=== PATIENT | male | born 1960 | race Caucasian/White ===

== ENCOUNTER 2024-03-16 13:47 | Emergency (ER) | payer OTHER ==
--- OUTSIDE RECORDS SUMMARY | 2024-03-16 13:52 | XMS REPORT | Continuity of Care Document ---
Author Name Unknown Address [address] [facility] [address] [place] [address] [facility] thconnect Address [address] [facility] [address] [place] [address] Care Team Providers Care Job Coaching Name Role Phone Conchita Attending Clinician Unavailable Mg Mitchell Attending Clinician Unavail able Stef Garcia Attending Clinician Unavailable Guerita Attending Clinician Unavailable Conchita Admitting Clinician Unavailable Guerita Admitting Clinician Unavailable Payers Payer Name Policy Type Policy Number Effective Date Expirati on Date Source [facility] [id number] 2023 00:00:00 2023 00:00:00 [place] [id number] 2012 00:00:00 Social History Social Habit Start Date Stop Date Quantity Comments Source Sex Assigned At 1960 00:00:00 1960 00:00:[address] [facility] Smoking Status Start Date Stop Date Source Unknown if ever smoked [facility] Procedures Procedure Date / Time Performed Performing Clinicia n Source CT Cervical Spine WO Con 2021-06-23 08:20:[address] [facility] Encounters Start Date/Time End Date/Time Encounter Type Admission Type Attending Clinicians Care Facility Care Department Encounter ID Source 2023-03-12 00:00:00 2023-03-12 00:00:00 Outpatient [place] [id number] [facility] 2021-08-09 15:06:00 2021-08-09 20:24:00 Emergency ER Mg Mitchell [facility] [id number] [facility] 2021-06-23 07:56:00 2021-06-23 09:00:00 Departed Emergency [id number] [facility] Ctr-EMERGEN CY SERVICES [id number] [facility]) 2021-06-23 07:56:00 2021-06-23 09:00:00 Emergency ER Stef Garcia [facility] [id number] [facility] 2021-06-23 07:56:00 2021-06-23 09:00:[address] [facility] Ctr-EMERG ENCY SERVICES [facility]tr-EMERGEN CY SERVICES [id number] [facility] ([place] 2016-08-02 04:37:00 2016-08-02 04:37:00 Outpatient Sreedhar_R [id number] [facility] Results Test Description Test Time Test Comments Results Result Co mments Source CPT Modifier: 59Hematology - [id number] 13:24:00* Test Item Value Reference Range Interpretation Comme nts Hematology - Fluids (test code = CRYSID) No crystals identified by polarization of unstained cytospinslide.SUSIE PERERA MD Source: KNEE ASPIRATEHematology - [id number] 11:23:00* Test Item Value Reference Range Interpretation Comme nts Hematology - Fluids (test code = CCDIFFBF) Synovial Fluid Hematology - Fluids (test code = CCDIFFTUBE) EDTA Hematology - Fluids (test code = CCDIFFCL) Cloudy/Turbid Clear A Hematology - Fluids (test code = CCDIFFBFCOL) Red Hematology - Fluids (test code = CCDIFFWBCA) 5745 /cu.mm Hematology - Fluids (test code = CCDIFFRBCA) Greater than 414530 /cu.mm Hematology - Fluids (test code = CCDIFFREFR) Note: The reference ra nge has not been established for this bodyfluid. The test result must be integrated into the clinicalcontext for interpretation. Source: SYNOVIAL FLUIDHematology - [id number] 11:23:00* Test Item Value Reference Range Interpretation Comme nts Hematology - Fluids (test code = CCDIFFBFNE) 37 % Hematology - Fluids (test code = CCDIFFLY) 9 % Hematology - Fluids (test code = CCDIFFNON) 54 % Non-Mack tic cells consist of macrophages, endothelial,histiocytic and mesothelial cells. Source: SYNOVIAL FLUIDHematology - [id number] 11:23:00* Test Item Value Reference Range Interpretation Comme [facility] Hematology - Fluids (test code = PATHF) Clinical: 60 year old male, unknown clinical.Fluid: Synovial fluidIMpression: Other cells are macrophages and synovial cells(on Ayala stained cytospin). No malignant cellsidentified.No crystals identified by polarization of unstained cytospinslide.SUSIE PERERA,[facility] CODE: [id number], 96254 Source: SYNOVIAL FLUIDSepsis - Lactic Acid >2 [id number] 20:01:00* Test Item Value Reference Range Interpretation Comme [facility] Sepsis - Lactic Acid >2 Rflx (test code = RTCWQ7A) Additional Lactate testing will be performed in 2 hrs according to the SepsisProtocol. Chemistry - Body [id number] 18:51:00* Test Item Value Reference Range Interpretation Comme [facility] Chemistry - Body Fluids (marimar t code = SYNGLU) 76 mg/dL Not Available [id number] 18:04:00* Test Item Value Reference Range Interpretation Comme [facility] Chemistry (test code = NA-T) 140 mmol/L 136-145 N Chemistry (test code = K-T) 4.5 mmol/L 3.5-5.1 N Chemistry (test code = CL) 104 mmol/L 98-107 N Chemistry (test code = CO2) 28 mmol/L 23-31 N Chemistry (test code = ANGP) 13 mmol/L 10-20 N Chemistry (test code = BUN) 17 mg/dL 8.4-25.7 N Chemistry (test code = CREATT) 0.89 mg/dL 0.7-1.3 N Chemistry (test code = EGFRMDRD) 87 Reference Range for Estimated GFR: Greater than 90 mL/min/1.73 m2NOTE:The MDRD equation has not been validated for use with theelderly (over 70 years of age), women, patientswith serious comorbid condition or persons with extremes ofbody size, muscle mass, or nutritional status. Chemistry (test code = GLU-T) 97 mg/dL 80-115 N Chemistry (test code = CA) 9.4 mg/dL 7.8-10.44 N Chemistry (test code = TBILI-T) 0.5 mg/dL 0.2-1.2 N Chemistry (test code = TP) 7.1 g/dL 5.8-8.1 N Chemistry (test code = ALB) 4.3 g/dL 3.4-4.8 N Chemistry (test code = GLOB) 2.8 g/dL 2.4-3.5 N Chemistry (test code = AG) 1.5 g/dL 1.2-2.2 N Chemistry (test code = ALP) 59 U/L 40-110 N Chemistry (test code = AST) 19 U/L 5-34 N Chemistry (test code = ALT) 17 U/L 8-55 N [id number] 18:02:00* Test Item Value Reference Range Interpretation Comme [facility] Chemistry (test code = CRP) 1.98 mg/dL See_Comment H [Automated [employer] ge] The system which generated this result transmitted reference range: = or < 0.5. The reference range was not used to interpret this result as normal/abnormal. What test does the doctor want? C-REACTIVE PROTEIN (CRP)Chemistry - Lactate 2021-08-09 18:00:00* Test Item Value Reference Range Interpretation Comme [facility] Chemistry - Lactate (test co de = LACTSEP-T) 2.4 mmol/L 0.5-2.2 H [id number] 17:50:00* Test Item Value Reference Range Interpretation Comme [facility] Hematology (test code = SED) 7 mm/hr Less than 20 [id number] 17:43:00* Test Item Value Reference Range Interpretation Comme [facility] Hematology (test code = WBCT) 10.9 thou/uL 4.8-10.8 H Hematology (test code = RBCT) 5.02 mill/uL 4.70-6.10 N Hematology (test code = HGBT) 15.0 g/dL 14.0-18.0 N Hematology (test code = HCTT) 44.5 % 42.0-52.0 N Hematology (test code = MCV) 88.6 fL 78.0-98.0 N Hematology (test code = MCH) 29.8 pg 27.0-31.0 N Hematology (test code = MCHC) 33.7 g/dL 32.0-36.0 N Hematology (test code = RDW) 12.2 % 11.5-14.5 N Hematology (test code = PLTT) 280 thou/uL 130-400 N Hematology (test code = MPV) 7.3 fL 7.4-10.4 L Hematology (test code = %NEUT) 65.6 % 42.0-75.0 N Hematology (test code = %LYMPH) 21.7 % 21.0-51.0 N Hematology (test code = %MONO) 9.7 % 0.0-10.0 N Hematology (test code = %EOS) 2.5 % 0.0-10.0 N Hematology (test code = %BASO) 0.5 % 0.0-1.0 N Hematology (test code = NEUT#) 7.1 thou/uL 1.40-6.50 H Hematology (test code = LYMPH#) 2.4 thou/uL 1.20-3.40 N Hematology (test code = MONO#) 1.1 thou/uL 0.11-0.59 H Hematology (test code = EOS#) 0.3 thou/uL 0.0-0.7 N Hematology (test code = BASO#) 0.1 thou/uL 0.0-0.[address] [facility] 1960 [facility] ERNST HILLIARD [address] Phys: [place] [address] : 1960 Age: 60 SEX:M [phone] Exam Date: 06/23/21 Status: REG ER Acct: [id number] Loc: ERS Pt Unit #: [id number] Report #: [id number] CC: ED TEMP PROVIDER Dayday Alford MD CAT SCAN REPORT Order # Category/Exam [id number] CT/CT Cervical Spine WO Con ([id number]): . Results EXAM: CT scan cervical spineWithout contrast: HISTORY: Neck pain COMPARISON: None FINDINGS: No evidence for acute fracture or facet dislocation. No significant malalignment. No prevertebral soft tissue swelling. Anterior cervical fusion changes at C4, C5, C6, and C7 with metal plate andscrews at C5, C6, C7. IMPRESSION: No evidence for acute fracture or facet dislocation or other significant acute process. Reported By: Harry Anderson MD Electronically Signed Date/Time: 06/23/21844 Technologist: DENI Dictated Date/Time: 06/23/21839 Transcribed Date/Time:
[2024-03-16] MEDS ORDERED: FENTANYL CITR 100 MCG/2 ML ONE (14:56)
[2024-03-16] MEDS ORDERED: ONDANSETRON 4 MG/2 ML VIAL ONE (14:56)
[2024-03-16] MEDS ORDERED: NA CHLORIDE 0.9% 1,000 ML ONE (14:57)
--- NOTE | 2024-03-16 15:11 | RAD REPORT ---
EXAM DESCRIPTION: RAD - Knee Right 3 View - 03/16/2024 3:05 pm CLINICAL HISTORY: PAIN COMPARISON: <Comparisons> FINDINGS: Soft tissue about the knee is edematous and thickened. There is a moderate joint effusion suspected. Right total knee arthroplasty noted.
[2024-03-16 15:43] LABS: Absolute Basophils 0.1 K/uL (0-0.5); Absolute Eosinophils 0.1 K/uL (0-0.5); Absolute Lymphocytes (CBC) 1.9 K/uL (0.7-4.9); Absolute Monocytes 1.2 K/uL (0.1-1.3); Basophils % 0.8 % (0-1.3); Eosinophils % 1.1 % (0-4.4); Hematocrit 38.8 % (39.6-49.0); Hemoglobin 12.8 g/dL (13.6-17.9); Lymphocytes % 16.7 % (15.3-44.8); MCH 28.6 pg (27.0-35.0); MCHC 33.1 g/dL (32.0-36.0); MCV 86.3 fL (80-100); Monocytes % 10.3 % (3.3-12.3); Neutrophils % 71.1 % (41.7-73.7); Platelets 565 thou/uL (152-406); RBC Red Blood Cell Count 4.49 M/uL (4.33-5.43); Red Cell Distribution Width 13.3 % (12.1-15.2)
[2024-03-16 15:59] LABS: PTT, Activated Partial Thromb 33.6 SECONDS (24.3-36.9); Protime INR 1.17
[2024-03-16 16:08] LABS: Albumin/Globulin Ratio 0.7 (1.1-1.8); Anion Gap 8.1 mEq/L (5.0-15.0); Bilirubin Total 0.3 mg/dL (0.2-1.0); Globulin 4.3 g/dL (2.3-3.5); Potassium 4.1 mEq/L (3.5-5.1); Protein, Total 7.3 g/dL (6.4-8.2)
[2024-03-16] MEDS ORDERED: MORPHINE 4 MG/ML SYR ONE ×2 (16:13→19:13)
--- NOTE | 2024-03-16 16:19 | ER ---
Nurse's Notes [facility] Name: Delon Bob Age: 63 yrs Sex: Male : 1960 Arrival Date: 03/16/2024 Time: 13:47 Bed 4 Private MD: Diagnosis: Post-op infection right knee Presentation: 03/16 14:01 Chief complaint: Patient states: had right knee surgery on Mar 05 at [facility], was sent home iw with baby aspirin only , was sent to a halfway [place] and he left after an hour, the knee is hot and painful and seems infected. Coronavirus screen: At this time, the client does not indicate any symptoms associated with coronavirus-19. Ebola Screen: No symptoms or risks identified at this time. Initial Sepsis Screen: Does the patient meet any 2 criteria? HR > 90 bpm. Does the patient have a suspected source of infection? No. Patient's initial sepsis screen is negative. Risk Assessment: Do you want to hurt yourself or someone else? Patient reports no desire to harm self or others. Onset of symptoms was March 16, 2024. 14:01 Method Of Arrival: Ambulatory iw 14:01 Acuity: MANUEL 3 iw Historical: - Allergies: 15:36 No Known Allergies; mb9 - Home Meds: 15:36 None [Active]; mb9 - PMHx: 15:36 None; mb9 - Immunization history:: Adult Immunizations up to date. - Infectious Disease History:: Denies. - Social history:: Smoking status: Patient denies any tobacco usage or history of. Screenin:37 [facility] ED Fall Risk Assessment (Adult) History of falling in the last 3 months, mb9 including since admission No falls in past 3 months (0 pts) Confusion or Disorientation No (0 pts) Intoxicated or Sedated No (0 pts) Impaired Gait Yes (1 pt) Mobility Assist Device Used Yes (1 pt) Altered Elimination No (0 pt) Score/Fall Risk Level 3 or more points = High Risk Oriented to surroundings, Maintained a safe environment, Educated pt \T\ family on fall prevention, incl call for assistance when getting out of bed, Assessed \T\ reinforced patient's understanding of fall precautions. Abuse screen: Denies threats or abuse. Nutritional screening: No deficits noted. Tuberculosis screening: No symptoms or risk factors identified. Assessment: 15:30 General: Appears in no apparent distress. Behavior is calm, cooperative. Pain: mb9 Complains of pain in right leg. Neuro: Warren Agitation-Sedation Scale (RASS): 0 - Alert and Calm Level of Consciousness is awake, alert, obeys commands, Oriented to person, place, time, situation, Appropriate for age. Cardiovascular: Patient's skin is warm and dry. Respiratory: Airway is patent Respiratory effort is even, unlabored, Respiratory pattern is regular, symmetrical. GI: No signs and/or symptoms were reported involving the gastrointestinal system. : No signs and/or symptoms were reported regarding the genitourinary system. EENT: No signs and/or symptoms were reported regarding the EENT system. Derm: Skin is pink, warm \T\ dry. Musculoskeletal: Range of motion: intact in all extremities, Swelling present in right leg. 17:00 Reassessment: No changes from previously documented assessment. Patient and/or family mb9 updated on plan of care and expected duration. Pain level reassessed. Patient is alert, oriented x 3, equal unlabored respirations, skin warm/dry/pink. 18:21 Reassessment: No changes from previously documented assessment. Patient and/or family mb9 updated on plan of care and expected duration. Pain level reassessed. Patient is alert, oriented x 3, equal unlabored respirations, skin warm/dry/pink. Vital Signs: 14:01 BP 128 / 76; Pulse 110; Resp 18; Temp 97; Pulse Ox 99% on R/A; iw 16:14 BP 147 / 94; Pulse 88; Resp 18; Pulse Ox 100% on R/A; mb9 18:20 BP 121 / 90; Pulse 85; Resp 18; Pulse Ox 100% on R/A; mb9 ED Course: 13:55 Patient arrived in ED. im 14:04 Triage completed. iw 14:04 Ingr[facility] Dooley [facility]-C [facility]. kb 14:04 Jakob Quiroz MD is Attending Physician. kb 14:54 Geneva Kaminski RN is Primary Nurse. mb9 15:07 Knee Right 3 View XRAY In Process Unspecified. EDMS 15:10 EKG done, by ED staff, reviewed by Ingris PENN. mb9 15:36 Arm band placed on. mb9 15:36 Placed in gown. Bed in low position. Call light in reach. Side rails up X 1. Provided mb9 Education on: press call light if needing anything. Client placed on continuous cardiac and pulse oximetry monitoring. NIBP monitoring applied. front desk monitor on. 15:36 Initial lab(s) drawn, by me, sent to lab. Inserted saline lock: 20 gauge in left mb9 forearm, using aseptic technique. Blood collected. Flushed with 10 mL NS. 16:01 No provider procedures requiring assistance completed. mb9 16:28 Patient transferred, IV remains in place. mb9 16:28 Wound care: to [facility]. bp 17:15 spoke with Tita at the [place] transfer center. and faxed over all clinical's. bc6 17:50 received acceptance with at the [facility] through Tita. bc6 18:30 janneth with [place] given ETA of 45 minutes. bc6 Administered Medications: 15:28 Drug: Ondansetron IVP 4 mg IVP once; over 2 minutes Route: IVP; Site: left forearm; mb9 18:22 Follow up: Response: No adverse reaction mb9 15:28 Drug: NS 0.9% IV 1000 ml IV at 1000 ml once Route: IV; Rate: 1000 ml; Site: left mb9 forearm; 18:22 Follow up: Response: No adverse reaction; IV Status: Completed infusion mb9 15:30 Drug: fentaNYL (PF) IVP 25 mcg IVP once Route: IVP; Site: left forearm; mb9 18:22 Follow up: Response: No adverse reaction mb9 16:26 Drug: morphine IVP or IV 4 mg IVP once over 4 mins Route: IVP; Infused Over: 4 mins; mb9 Site: left antecubital; 18:22 Follow up: Response: No adverse reaction mb9 18:02 Drug: vancoMYCIN IVPB 1 grams IVPB once over 2 hrs Route: IVPB; Infused Over: 2 hrs; bp Site: left wrist; 18:43 Follow up: Response: No adverse reaction; IV Status: Infusion continued upon transfer mb9 19:20 Drug: morphine IVP or IV 4 mg IVP once over 4 mins Route: IVP; Infused Over: 4 mins; jb4 Site: left forearm; 19:29 Follow up: Response: Medication Administered at Departure jb4 Medication: 15:37 VIS not applicable for this client. mb9 Outcome: 16:19 ER care complete, transfer ordered by MD. rice 18:21 Transferred by ground EMS to [facility] Transfer form completed. mb9 X-rays sent w/ patient. 18:21 Condition: stable 18:21 Instructed on the need for transfer, 19:30 Patient left the ED. jb4 Signatures: Dispatcher [employer] EDLA Ingris Dooley, TRANSITION MANAGER-C TRANSITION MANAGER-Kristy Bass, RN RN Delon López RN RN jb4 George Daugherty RN RN bp Wilkerson, Mary Beth, RN RN mb9 Crystal Beal6 Marimar Stevens
--- NOTE | 2024-03-16 16:19 | EDPHYS ---
Physician Documentation [facility] Name: Delon Bob Age: 63 yrs Sex: Male : 1960 Arrival Date: 03/16/2024 Time: 13:47 Bed 4 Private MD: ED Physician Jakob uQiroz HPI: 03/16 16:10 This 63 yrs old Male presents to ER via Ambulatory with complaints of Knee Pain - post kb surgery issue on 03/05/24. 16:10 Pt is a 63 year old male who presents for redness, swelling, warmth and increased pain kb to right knee. States he had a knee replacement on 03/05/24 at the [place] and believes it is infected. Reports intermittent nausea and fever. . Historical: - Allergies: 15:36 No Known Allergies; mb9 - Home Meds: 15:36 None [Active]; mb9 - PMHx: 15:36 None; mb9 - Immunization history:: Adult Immunizations up to date. - Infectious Disease History:: Denies. - Social history:: Smoking status: Patient denies any tobacco usage or history of. ROS: 15:23 Constitutional: As per HPI kb Exam: 15:23 Constitutional: This is a well developed, well nourished patient who is awake, alert, kb and in no acute distress. Head/Face: Normocephalic, atraumatic. ENT: Moist Mucous membranes Cardiovascular: Regular rate Respiratory: Respirations even and unlabored. No increased work of breathing. Talking in full sentences Abdomen/GI: Soft, non-tender. No distention Neuro: Awake and alert, GCS 15, oriented to person, place, time, and situation. Moves all extremities. Normal gait. 15:23 ECG was reviewed by the Attending Physician. 16:09 Musculoskeletal/extremity: Extremities: grossly normal except: noted in the right knee: kb ecchymosis, pain, swelling, tenderness, surgical incision well approximated, ROM: limited active range of motion due to pain, Circulation is intact in all extremities. Sensation intact. Weight bearing: can bear weight with assistance only, uses walker, Vital Signs: 14:01 BP 128 / 76; Pulse 110; Resp 18; Temp 97; Pulse Ox 99% on R/A; iw 16:14 BP 147 / 94; Pulse 88; Resp 18; Pulse Ox 100% on R/A; mb9 18:20 BP 121 / 90; Pulse 85; Resp 18; Pulse Ox 100% on R/A; mb9 MDM: 14:04 Patient medically screened. kb 16:10 Data reviewed: vital signs, nurses notes. kb 16:15 Differential diagnosis: cellulitis, post op infection. Consideration of kb Admission/Observation Escalation of care including admission/observation considered. pt will be transferred to [place] for continuity of care. Counseling: I had a detailed discussion with the patient and/or guardian regarding the historical points, exam findings, and any diagnostic results supporting the discharge/admit diagnosis, lab results, radiology results, the need to transfer to another facility, continuity of care. 18:06 Management of patient was discussed with the following: Dr Araiza accepts pt without kb conference. 03/16 14:04 Order name: Blood Culture Adult (2) kb 03/16 14:04 Order name: CBC with Diff; Complete Time: 15:45 kb 03/16 14:04 Order name: CMP; Complete Time: 16:08 kb 03/16 14:04 Order name: Lactate w/ 2H reflex if indic.; Complete Time: 16:08 kb 03/16 14:04 Order name: Protime (+inr); Complete Time: 15:59 kb 03/16 14:04 Order name: Ptt, Activated; Complete Time: 15:59 kb 03/16 14:09 Order name: Knee Right 3 View XRAY; Complete Time: 15:12 iw 03/16 14:04 Order name: EKG; Complete Time: 14:05 kb 03/16 14:04 Order name: Accucheck; Complete Time: 15:37 kb 03/16 14:04 Order name: Cardiac monitoring; Complete Time: 15:37 kb 03/16 14:04 Order name: EKG - Nurse/Tech; Complete Time: 15:37 kb 03/16 14:04 Order name: IV Saline Lock - Large Bore; Complete Time: 15:37 kb 03/16 14:04 Order name: Labs collected and sent; Complete Time: 15:37 kb 03/16 14:04 Order name: O2 Per Protocol; Complete Time: 15:37 kb 03/16 14:04 Order name: O2 Sat Monitoring; Complete Time: 15:37 kb 03/16 14:04 Order name: Vital Signs; Complete Time: 15:37 kb 03/16 16:06 Order name: Dressing - Wound; Complete Time: 16:19 kb EC:23 Rate is 90 beats/min. Rhythm is regular. QRS [place] is Normal. DE interval is normal at kb 144 msec. QRS interval is normal at 88 msec. QT interval is normal at 452 msec. Administered Medications: 15:28 Drug: Ondansetron IVP 4 mg IVP once; over 2 minutes Route: IVP; Site: left forearm; mb9 18:22 Follow up: Response: No adverse reaction mb9 15:28 Drug: NS 0.9% IV 1000 ml IV at 1000 ml once Route: IV; Rate: 1000 ml; Site: left mb9 forearm; 18:22 Follow up: Response: No adverse reaction; IV Status: Completed infusion mb9 15:30 Drug: fentaNYL (PF) IVP 25 mcg IVP once Route: IVP; Site: left forearm; mb9 18:22 Follow up: Response: No adverse reaction mb9 16:26 Drug: morphine IVP or IV 4 mg IVP once over 4 mins Route: IVP; Infused Over: 4 mins; mb9 Site: left antecubital; 18:22 Follow up: Response: No adverse reaction mb9 18:02 Drug: vancoMYCIN IVPB 1 grams IVPB once over 2 hrs Route: IVPB; Infused Over: 2 hrs; bp Site: left wrist; 18:43 Follow up: Response: No adverse reaction; IV Status: Infusion continued upon transfer mb9 19:20 Drug: morphine IVP or IV 4 mg IVP once over 4 mins Route: IVP; Infused Over: 4 mins; jb4 Site: left forearm; 19:29 Follow up: Response: Medication Administered at Departure jb4 Disposition Summary: 03/16/24 16:19 Transfer Ordered Notes: Transfer Location: [facility] kb Reason: Higher level of care kb Condition: Stable kb Problem: new kb Symptoms: are unchanged kb Accepting Physician: Dr Araiza(03/16/24 19:30) jb4 Diagnosis - Post-op infection right knee kb Forms: - Medication Reconciliation Form kb - SBAR form kb Addendum: 03/21/2024 01:18 Co-signature as Attending Physician, Jakob Quiroz MD I reviewed the patient's care r n provided by the Advanced Practice Provider and agree with the diagnosis and treatment plan. Signatures: Dispatcher [employer] EDMS Ingris Dooley, AUTO GLASS WORKER-C AUTO GLASS WORKER-Ckb Kristy Aguilera, RN RN iw Jakob Quiroz MD MD rn Bryson, James, RN RN jb4 George Daugherty, RN RN Geneva Cole, RN RN mb9 Corrections: (The following items were deleted from the chart) 03/16 14:05 14:05 BLOOD CULTURE*+BA.LAB.BRZ ordered. EDMS EDMS 14:05 14:05 CBC+H.LAB.BRZ ordered. EDMS EDMS 14:05 14:05 COMPREHENSIVE METABOLIC PANEL+C.LAB.BRZ ordered. EDMS EDMS 14:05 14:05 LACTATE+C.LAB.BRZ ordered. EDMS EDMS 14:05 14:05 PROTIME (+INR)+COAG.LAB.BRZ ordered. EDMS EDMS 14:05 14:05 PTT, ACTIVATED+COAG.LAB.BRZ ordered. EDMS EDMS 14:09 14:09 Knee Right 3 View+RAD.RAD.BRZ ordered. EDMS EDMS 18:06 16:19 Dr dwayne rice 19:30 18:06 Dr Teodora rice jb4
[2024-03-16] MEDS ORDERED: NA CHLORIDE 0.9% 250 ML ONE (17:54)
[2024-03-16] MEDS ORDERED: VANCOMYCIN 1 GM/VIAL ONE (17:54)
[2024-03-16 19:53] VITALS: TEMP 97
[2024-03-16 19:54] VITALS: BP 121/90; O2SAT 100
--- NOTE | 2024-03-17 12:09 | EKG ---
Test Date: 2024-03-16 Test Time: 15:05:47 Tail Puller: MB MEASUREMENT RESULTS: Intervals: Rate: 90 PA: 144 QRSD: 88 QT: 370 QTc: 452 [place]: P: 62 PA: 144 QRS: 36 T: 58 INTERPRETIVE STATEMENTS: Normal sinus rhythm Normal ECG No previous ECG available for comparison Electronically Signed On 03-17-24 12:06:38 CDT by Devang Echavarria
== END 2024-03-16 19:30 ==
LOC: ER 13:47
DX: T81.40XA Infection following a procedure, unspecified, initial encounter (principal); Z96.651 Presence of right artificial knee joint
CPT/HCPCS: 93005; 87040 ×2; 85025; 36415; 85610; 83605; 85730; 80053; 73562; 99285; J3010; J2405; J7050; J7030